=== PATIENT | female | born 1975 | race Caucasian/White ===

== ENCOUNTER 2018-11-03 10:55 | Emergency (ER) | payer OTHER ==
[~2018-11-03] VITALS: Ht 162.6 cm; Wt 63.5 kg
[~2018-11-03 10:55] MED LIST: SYNTHROID137 MCG
== END 2018-11-03 16:06 | disposition home or self-care (01) ==
LOC: ER 10:55
DX: N93.8 Other specified abnormal uterine and vaginal bleeding (principal); N83.291 Other ovarian cyst, right side